=== PATIENT | female | born 1960 | race Caucasian/White ===

== ENCOUNTER 2017-03-15 00:14 | Day surgery (SDC) | payer OTHER ==
[~2017-03-15] VITALS: Ht 175.3 cm; Wt 104.3 kg
[~2017-03-15 00:14] MED LIST: ACET-1966 PO; ACET-2146 PO; CETI-176 PO; ESCI10TA8 PO; IBUP800T37 PO; LOSA100T67 PO; NEBI10TA4 PO; TRIA-20 PO
[2017-03-15] MEDS ORDERED: PROPOFOL EMUL(*) 10MG/ML 20 ML 60 ML ONE (06:52)
[2017-03-15] MEDS ORDERED: LIDOCAINE MPF 1% 5 ML VIAL ONE (06:52)
[2017-03-15 07:45] VITALS: BP 160/89
[2017-03-15] MEDS ORDERED: LIDOCAINE/SOD BICARB 8.4% SYR ID ONE (08:15)
[2017-03-15] MEDS ORDERED: MIDAZOLAM 2 MG/2 ML VIAL IVP PRN (08:15)
[2017-03-15] MEDS ORDERED: NORMOSOL R SOLN(*) 1000 ML BAG 1,000 ML IV PRN (08:15)
[2017-03-15 09:50] VITALS: BP 117/70
--- NOTE | 2017-03-15 09:54 | Short(Outpt) Discharge Summary ---
Discharge Summary Reason for Hosp/Final Diag: (1) Colon cancer screening Status: Chronic Hospital Course & Plan: Colonoscopy with polypectomy x2 completed without problems. Departure Discharge to: Home, Self Care Discharge Instructions Home Meds Reported Medications Acetaminophen (ACETAMINOPHEN EXTRA STRENGTH) 500 Mg Tablet, 2 TAB PO BID, TAB 02/10/17 Cetirizine Hcl (ZYRTEC) 10 Mg Tablet, 10 MG PO QDAY, TAB 02/01/17 Escitalopram Oxalate (ESCITALOPRAM OXALATE) 10 Mg Tablet, 10 MG PO QDAY, TAB 02/01/17 Triamterene/Hydrochlorothiazid (TRIAMTERENE-HCTZ 37.5-25 MG TB) 1 Each Tablet, 1 EACH PO QDAY 02/01/17 Nebivolol Hcl (BYSTOLIC) 10 Mg Tab, 10 MG PO QDAY, TAB 02/01/17 Losartan Potassium (LOSARTAN POTASSIUM) 100 Mg Tablet, 100 MG PO QDAY 02/01/17 Discontinued Scripts Ibuprofen (IBUPROFEN) 800 Mg Tablet, 1 TAB PO Q8H Y for pain, #30 TAB 0 Refills TAKE WITH FOOD EVERY 8 HOURS Prov:ADI MENDOZA MD 02/15/17 Diet: Regular Activity: As Tolerated Special Instructions: Your colonoscopy was completed without any problems and your prep was excellent (Good Job!!). I removed 2 polyps from your colon and they were sent to pathology. My office will call you in the next week to let you know what the polyps are and when your next colonoscopy should be. STEVIE HONG MD Mar 15, 2017 09:54
[2017-03-15 10:00] VITALS: BP 134/85
[2017-03-15 10:12] VITALS: BP 150/83
[2017-03-15 10:14] VITALS: BP 157/72
== END 2017-03-15 10:30 | disposition home or self-care (01) ==
LOC: OR 00:14
PROVIDERS: ATTEND Surgery
DX: Z12.11 Encounter for screening for malignant neoplasm of colon (principal); D12.5 Benign neoplasm of sigmoid colon; K63.5 Polyp of colon
CPT/HCPCS: 00811; 45385; 88305; J2001; J2704

== ENCOUNTER → 2017-05-03 | Outpatient (CLI) | payer OTHER ==
--- NOTE | 2017-05-03 11:29 | EKG ---
FACILITY: [facility] - [place] PATIENT NAME: ZHANE SEGOVIA : [id number] MR: [id number] V: [id number] EXAM DATE: ORDERING PHYSICIAN: DANIEL PATTON TECHNOLOGIST: HAKAN Land Reason : PREOP-R93,4 Blood Pressure : / mmHG Vent. Rate : 063 BPM Atrial Rate : 063 BPM P-R Int : 172 ms QRS Dur : 104 ms QT Int : 458 ms P-R-T Axes : 052 040 168 degrees QTc Int : 468 ms Sinus rhythm Possible left atrial enlargement Septal infarct , age undetermined T wave abnormality, consider inferolateral ischemia Abnormal ECG No previous ECGs available Confirmed by MARLI GUERRA ([id number]) on 05/03/2017 7:36:26 PM Referred By: POOJA Confirmed By:MARLI GUERRA
== END ==
LOC: LAB 11:10
PROVIDERS: ATTEND Obstetrics & Gynecology Gynecologic Oncology
DX: R94.31 Abnormal electrocardiogram [ECG] [EKG] (principal); R93.49 Abnormal radiologic findings on diagnostic imaging of other urinary organs
CPT/HCPCS: 36415; 82040; 82247; 82248; 82310; 82374; 82435; 82565; 82947; 84075; 84132; 84155; 84295; 84450; 84460; 84520; 85027; 93005

== ENCOUNTER 2017-05-12 14:27 | Emergency (ER) | payer OTHER ==
[2017-05-12] MEDS ORDERED: IBUP800T37 PO (14:34)
--- NOTE | 2017-05-12 14:39 | ER Report ---
History and Physical Time Seen By MD: 14:37 Hx. of Stated Complaint: HAD HYSTERECTOMY ON MONDAY. REPORTS THAT SHE HAD A COLD PRIOR TO PROCEDURE AND NOW FEELS "A RATTLE IN MY CHEST." PRODUCTIVE COUGH. HPI/ROS CHIEF COMPLAINT: Cough shortness of breath HISTORY OF PRESENT ILLNESS: 56-year-old female 3 days status post robotic hysterectomy comes emergency Department today with a complaint of cough productive of thickish pink sputum shortness of breath some mild exertional dyspnea nor orthopnea no PND no associated chest pain or discomfort patient states she's had some mild exertional dyspnea as well she normally uses CPAP at home which is unchanged from her baseline. Patient has no leg Tenderness no additional complaints noted REVIEW OF SYSTEMS: Respiratory: Cough shortness of breath Cardiovascular: No chest pain, no palpitations. Gastrointestinal: No vomiting, no abdominal pain. Musculoskeletal: No back pain. Allergies: Coded Allergies: No Known Drug Allergies (Unverified , 05/12/17) Home Meds Reported Medications Ibuprofen (IBUPROFEN) 800 Mg Tablet, 1 TAB PO Q8H, TAB 05/12/17 Cetirizine Hcl (ZYRTEC) 10 Mg Tablet, 10 MG PO QDAY, TAB 02/01/17 Escitalopram Oxalate (ESCITALOPRAM OXALATE) 10 Mg Tablet, 10 MG PO QDAY, TAB 02/01/17 Triamterene/Hydrochlorothiazid (TRIAMTERENE-HCTZ 37.5-25 MG TB) 1 Each Tablet, 1 EACH PO QDAY 02/01/17 Nebivolol Hcl (BYSTOLIC) 10 Mg Tab, 10 MG PO QDAY, TAB 02/01/17 Losartan Potassium (LOSARTAN POTASSIUM) 100 Mg Tablet, 100 MG PO QDAY 02/01/17 Discontinued Reported Medications Acetaminophen (ACETAMINOPHEN EXTRA STRENGTH) 500 Mg Tablet, 2 TAB PO BID, TAB 02/10/17 Reviewed Nurses Notes: Yes Old Medical Records Reviewed: Yes Hx Smoking: No Smoking Status: Never Smoker Exposure to Second Hand Smoke?: Yes (childhood) Hx Substance Use Disorder: No Hx Alcohol Use: Yes (moderate) Constitutional Vital Sign - Last 24 Hours 05/12/17 14:31 Temp 98.5 Pulse 73 Resp 20 B/P (MAP) 207/110 Pulse Ox 91 O2 Delivery Room Air Physical Exam General Appearance: The patient is alert, has no immediate need for airway protection and no current signs of toxicity. [ ] Eyes: Pupils equal and round no injection. Respiratory: Mild Rales bilaterally Cardiac: regular rate and rhythm [ ] Gastrointestinal: Abdomen is soft and non tender, no masses, bowel sounds normal. Musculoskeletal: Neck: Neck is supple and non tender. Extremities have full range of motion and are non tender. Skin: No rashes or lesions. Abdominal scar noted no sign of infection DIFFERENTIAL DIAGNOSIS: After history and physical exam differential diagnosis was considered for pulmonary emboli cardiac myopathy cardiac abnormality myocardial infarction upper respiratory viral infection pneumonia Medical Decision Making Data Points Result Diagram: 05/12/17 1430 05/12/17 1430 Laboratory Hematology Test 05/12/17 14:30 Red Blood Count 4.37 M/uL (4.17-5.56) Mean Corpuscular Volume 92.0 fL (80.0-96.0) Mean Corpuscular Hemoglobin 32.4 pg (26.0-33.0) Mean Corpuscular Hemoglobin Concent 35.2 g/dL (32.0-36.0) Red Cell Distribution Width 12.9 % (11.5-14.5) Mean Platelet Volume 9.0 fL (7.2-11.1) Neutrophils (%) (Auto) 55.9 % (39.4-72.5) Lymphocytes (%) (Auto) 35.1 % (17.6-49.6) Monocytes (%) (Auto) 6.7 % (4.1-12.4) Eosinophils (%) (Auto) 1.9 % (0.4-6.7) Basophils (%) (Auto) 0.4 % (0.3-1.4) Nucleated RBC Relative Count (auto) 0.1 /100WBC Neutrophils # (Auto) 4.8 K/uL (2.0-7.4) Lymphocytes # (Auto) 3.0 K/uL (1.3-3.6) Monocytes # (Auto) 0.6 K/uL (0.3-1.0) Eosinophils # (Auto) 0.2 K/uL (0.0-0.5) Basophils # (Auto) 0.0 K/uL (0.0-0.1) Nucleated RBC Absolute Count (auto) 0.01 K/uL Sodium Level 139 mmol/L (137-145) Potassium Level 3.7 mmol/L (3.5-5.0) Chloride Level 100 mmol/L (98-107) Carbon Dioxide Level 26 mmol/L (22-31) Blood Urea Nitrogen 13 mg/dl (7-18) Creatinine 1.20 mg/dl (0.52-1.04) Glomerular Filtration Rate Calc 46.3 Random Glucose 107 mg/dl (75-110) Calcium Level 9.1 mg/dl (8.4-10.2) Total Bilirubin 0.5 mg/dl (0.2-1.3) Aspartate Amino Transf (AST/SGOT) 66 U/L (0-35) Alanine Aminotransferase (ALT/SGPT) 107 U/L (0-56) Alkaline Phosphatase 84 U/L (0-126) Troponin I < 0.012 ng/ml B-Type Natriuretic Peptide 146 pg/ml (0-100) Total Protein 7.2 gm/dl (6.3-8.2) Albumin 4.0 g/dl (3.5-5.0) Chemistry Test 05/12/17 14:30 White Blood Count 8.6 k/uL (4.5-11.0) Red Blood Count 4.37 M/uL (4.17-5.56) Hemoglobin 14.2 g/dL (12.0-16.0) Hematocrit 40.2 % (34.0-47.0) Mean Corpuscular Volume 92.0 fL (80.0-96.0) Mean Corpuscular Hemoglobin 32.4 pg (26.0-33.0) Mean Corpuscular Hemoglobin Concent 35.2 g/dL (32.0-36.0) Red Cell Distribution Width 12.9 % (11.5-14.5) Platelet Count 221 K/uL (150-450) Mean Platelet Volume 9.0 fL (7.2-11.1) Neutrophils (%) (Auto) 55.9 % (39.4-72.5) Lymphocytes (%) (Auto) 35.1 % (17.6-49.6) Monocytes (%) (Auto) 6.7 % (4.1-12.4) Eosinophils (%) (Auto) 1.9 % (0.4-6.7) Basophils (%) (Auto) 0.4 % (0.3-1.4) Nucleated RBC Relative Count (auto) 0.1 /100WBC Neutrophils # (Auto) 4.8 K/uL (2.0-7.4) Lymphocytes # (Auto) 3.0 K/uL (1.3-3.6) Monocytes # (Auto) 0.6 K/uL (0.3-1.0) Eosinophils # (Auto) 0.2 K/uL (0.0-0.5) Basophils # (Auto) 0.0 K/uL (0.0-0.1) Nucleated RBC Absolute Count (auto) 0.01 K/uL Glomerular Filtration Rate Calc 46.3 Calcium Level 9.1 mg/dl (8.4-10.2) Total Bilirubin 0.5 mg/dl (0.2-1.3) Aspartate Amino Transf (AST/SGOT) 66 U/L (0-35) Alanine Aminotransferase (ALT/SGPT) 107 U/L (0-56) Alkaline Phosphatase 84 U/L (0-126) Troponin I < 0.012 ng/ml B-Type Natriuretic Peptide 146 pg/ml (0-100) Total Protein 7.2 gm/dl (6.3-8.2) Albumin 4.0 g/dl (3.5-5.0) ED Course/Re-evaluation ED Course ED clinical course medical decision making 56-year-old female came in with productive cough chest x-ray was negative however CT angiogram concerning for PE did demonstrate some peribronchial thickening consistent with a bronchitis some free air consistent with her surgical procedure patient be discharged on antibiotics diagnosis bronchitis Decision to Disposition Date: May 12, 2017 Decision to Disposition Time: 16:15 Depart Departure Latest Vital Signs Vital Signs Date Time Temp Pulse Resp B/P (MAP) Pulse Ox O2 Delivery O2 Flow Rate FiO2 05/12/17 14:31 98.5 73 20 207/110 91 Room Air Impression: Primary Impression: Bronchitis Condition: Improved Disposition: HOME OR SELF-CARE Referrals: ADI MENDOZA MD (PCP) 10 Days New Scripts Amoxicillin 500 Mg Tab (AMOXICILLIN 500 MG TAB) 500 Mg Tablet 2 TAB PO Q12H, #20 TAB Prov: SHANTELLE TOBIN MD 05/12/17 Patient Instructions: Acute Bronchitis (ED) SHANTELLE TOBIN MD May 12, 2017 14:38
[2017-05-12] MEDS ORDERED: IOPAMIDOL 76% 75 ML INFUS BTL 75 ML ONE (14:46)
--- NOTE | 2017-05-12 14:46 | EKG ---
FACILITY: [facility] PATIENT NAME: ZHANE SEGOVIA : [id number] MR: [id number] V: [id number] EXAM DATE: ORDERING PHYSICIAN: SHANTELLE TOBIN TECHNOLOGIST: Deon Land Reason : Blood Pressure : / mmHG Vent. Rate : 054 BPM Atrial Rate : 054 BPM P-R Int : 196 ms QRS Dur : 114 ms QT Int : 502 ms P-R-T Axes : 063 020 079 degrees QTc Int : 476 ms Sinus bradycardia Possible left atrial enlargement Nonspecific interventricular conduction delay Possible Anterolateral infarct (cited on or before 03-MAY-2017) T wave inversion through precordial leads Abnormal ECG Confirmed by MARLI GUERRA ([id number]) on 05/13/2017 5:34:41 AM Referred By: Confirmed By:MARLI GUERRA
[2017-05-12 14:50] LABS: PLATELET COUNT, AUTOMATED 221 K/uL (150-450)
--- NOTE | 2017-05-12 15:23 | RADIOLOGY IMAGING REPORT ---
FACILITY: [facility] - [place] PATIENT NAME: Nina Ochoa : 1960 MR: [id number] V: [id number] EXAM DATE: ORDERING PHYSICIAN: SHANTELLE TOBIN TECHNOLOGIST: Location: [facility] - [place] Patient: Nina Ochoa : 1960 Visit/Account:[id number] Date of Sevice: 05/12/2017 Exam type: CHEST PA AND LAT History: Shortness of breath and cough Comparison: None. Findings: The lungs are free of acute effusions, infiltrates or edema. Cardiac silhouette is normal in size. The trachea is midline. There are mild spondylotic changes of the thoracic spine. IMPRESSION: 1. No acute cardiopulmonary process is seen Report Dictated By: Leonie Brown MD at 05/12/2017 3:18 PM Report E-Signed By: Leonie Brown MD at 05/12/2017 3:18 PM WSN:[id number]
--- NOTE | 2017-05-12 16:14 | RADIOLOGY IMAGING REPORT ---
FACILITY: [facility] - [place] PATIENT NAME: Nina Ochoa : 1960 MR: [id number] V: [id number] EXAM DATE: ORDERING PHYSICIAN: SHANTELLE TOBIN TECHNOLOGIST: Location: [facility] - [place] Patient: Nina Ochoa : 1960 Visit/Account:[id number] Date of Sevice: 05/12/2017 EXAMINATION: CT CHEST PULMONARY ANGIOGRAM COMPARISON: None available HISTORY: Shortness of breath PROCEDURE: Pulmonary arterial phase imaging of the chest with 75 mL intravenous Isovue 370. Reconstru ction of the source data set includes multiplanar 2D in the sagittal and coronal planes, and 3D recon structed coronal slab MIP series. One of the following dose optimization techniques was utilized in the performance of this exam: Autom ated exposure control; adjustment of the mA and/or kV according to the patient's size; or use of an i terative reconstruction technique. Specific details can be referenced in the facility's radiology C T exam operational policy. FINDINGS: Pulmonary vasculature: There is good contrast opacification of the pulmonary arterial system. No pul monary embolism. Main pulmonary artery size is normal. Cardiac and mediastinum: Cardiac chamber size is normal. No pericardial effusion. Trace coronary calc ifications. No thoracic aortic aneurysm. No thoracic lymph node enlargement. Lungs and pleura: No focal consolidation or suspicious pulmonary nodule. No pneumothorax, pulmonary e jace, or pleural effusion. Airways: Mild bronchial wall thickening most notably in the lower lobes. No central airway occlusion. Upper abdomen: Small amount of gas in the left upper quadrant could potentially be venous gas althoug h is incompletely characterized. Osseous structures: Mild degenerative change in the visualized spine. No acute findings. IMPRESSION: 1. No pulmonary embolism. 2. Bilateral lower lobe mild airway thickening; correlation with any evidence of a bronchitis or reac tive airway disease is recommended. 3. Small amount of gas in the abdomen left upper quadrant. This is presumably postoperative gas from the hysterectomy 3 days ago but if there is any clinical concern for acute abdominopelvic pathology c onsider further characterization by CT abdomen and pelvis. Results were discussed with SHANTELLE TOBIN at 05/12/2017 4:07 PM. Report Dictated By: Gary Trevino MD at 05/12/2017 3:50 PM Report E-Signed By: Gary Trevino MD at 05/12/2017 4:09 PM WSN:[id number]
[2017-05-12 16:15] VITALS: BP 161/100
[2017-05-12] MEDS ORDERED: AMOX500T10 PO (16:16)
== END 2017-05-12 16:20 | disposition home or self-care (01) ==
LOC: ER 14:28
DX: J40 Bronchitis, not specified as acute or chronic (principal)
CPT/HCPCS: 71046; 71275; 83880; 84484; 85025; 93005; 99284; Q9967; 82040; 82247; 82310; 82374; 82435; 82565; 82947; 84075; 84132; 84155; 84295; 84450; 84460; 84520

== ENCOUNTER → 2017-12-27 | Outpatient (CLI) | payer OTHER ==
[~2017-12-27] MED LIST changes: +AMOX500T10 PO; +AZEL30CR; +DOXY-179; +ESTR1PAT2 TD; +ESTR1PAT89 TD; +LOSA-57 PO; -LOSA100T67 PO; +LOSA100T69 PO
[2017-12-27 09:27] LABS: PLATELET COUNT, AUTOMATED 226 K/uL (150-450)
== END ==
LOC: LAB 09:16
PROVIDERS: ATTEND Nurse Practitioner Primary Care
DX: R10.31 Right lower quadrant pain (principal)
CPT/HCPCS: 36415; 81001; 82040; 82247; 82310; 82374; 82435; 82565; 82947; 84075; 84132; 84155; 84295; 84450; 84460; 84520; 85025

== ENCOUNTER → 2018-01-03 | Outpatient (CLI) | payer OTHER ==
[~2018-01-03] MED LIST changes: +HYDR-385 PO; +IOPAMIDOL 76% 75 ML INFUS BTL 75 ML ONE
--- NOTE | 2018-01-03 09:33 | RADIOLOGY IMAGING REPORT ---
FACILITY: [facility] PATIENT NAME: Nina Ochoa : 1960 MR: [id number] V: [id number] EXAM DATE: ORDERING PHYSICIAN: ELINOR SALDANA TECHNOLOGIST: Location: [facility] - [place] Patient: Nina Ochoa : 1960 Visit/Account:[id number] Date of Sevice: 01/03/2018 ABDOMEN/PELVIS WITH CONTRAST HISTORY: RLQ pain x1 year, worsening over past week, hysterectomy in May, back pain TECHNIQUE: Following administration of IV contrast contiguous axial images acquired through the abdom en/pelvis. Coronal and sagittal reformatting also performed.Dose Lowering Technique One of the following dose optimization techniques was utilized in the performance of this exam: Autom ated exposure control; adjustment of the mA and/or kV according to the patient's size; or use of an i terative reconstruction technique. Specific details can be referenced in the facility's radiology C T exam operational policy. CONTRAST: 75 mL Isovue-370 COMPARISON: CTA chest May 12, 2017 FINDINGS: Visualized lung bases: Negative. Hepatobiliary: Negative. Spleen: Negative. Adrenals: Negative. Pancreas: Negative. Kidneys ureters or bladder: Negative. Genitalia: Hysterectomy GI: Small hiatal hernia. The appendix is not visualized although no inflammatory changes identified in the right lower quadran t Vessels/spaces/nodes: Negative. Bones/soft tissues: There is a small umbilical hernia containing fat Additional findings: None pertinent. IMPRESSION: Postsurgical changes from hysterectomy Small hiatal hernia The appendix is not visualized although no inflammatory changes are identified in the right lower jenni drant Small umbilical hernia containing fat Report Dictated By: Leonie Brown MD at 01/03/2018 9:14 AM Report E-Signed By: Leonie Brown MD at 01/03/2018 9:29 AM WSN:[email or web address]
== END ==
LOC: CT 01:08
PROVIDERS: ATTEND Nurse Practitioner Primary Care
DX: K44.9 Diaphragmatic hernia without obstruction or gangrene (principal); K42.9 Umbilical hernia without obstruction or gangrene; Z90.711 Acquired absence of uterus with remaining cervical stump
CPT/HCPCS: 74177; Q9967